=== PATIENT | male | born 1990 | race American Indian/Alaskan Native ===

== ENCOUNTER 2017-01-04 19:33 | Emergency (ER) | payer MEDICAID ==
[2017-01-04] MEDS ORDERED: PEPCID IV ONE (20:29)
[2017-01-04] MEDS ORDERED: BENADRYL IV ONE (20:29)
[2017-01-04] MEDS ORDERED: NACL 0.9% 1000 ML 1,000 ML IV ONE (20:30)
--- NOTE | 2017-01-04 20:30 | Emergency Department Report ---
HPI - General Chief Complaint: Allergic Reaction Time Seen by Provider: 01/04/17 20:25 ED Past Medical Hx - Past Medical History Previous Medical History?: No - Surgical History Past Surgical History?: No - Social History Smoking Status: Current Every Day Smoker Substance Use Type: None ED Review of Systems ROS: Stated complaint: POSS REACTION TO MEDS Other details as noted in HPI Physical Exam - Physical Exam Vital Signs: Vital Signs 01/04/17 19:53 Temperature 98.6 F Pulse Rate 118 H Respiratory 18 Rate Blood Pressure 133/88 O2 Sat by Pulse 100 Oximetry ED Course Vital Signs 01/04/17 19:53 Temperature 98.6 F Pulse Rate 118 H Respiratory 18 Rate Blood Pressure 133/88 O2 Sat by Pulse 100 Oximetry Critical care attestation.: If time is entered above; I have spent that time in minutes in the direct care of this critically ill patient, excluding procedure time. ED Disposition Condition: Stable
--- NOTE | 2017-01-04 20:35 | Emergency Department Report ---
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 Pt reports today is the first time he has ever had it. Pt reports his jaw feels "locked" but the patient has FROM of his jaw and is speaking. Pt is a poor historian secondary to mental delay. Otherwise no other complaints - Related Data Previous Rx's Medication Instructions Recorded Last Taken Type diphenhydrAMINE [Benadryl CAP] 25 mg PO Q6HR PRN #15 capsule 01/04/17 Unknown Rx predniSONE [Deltasone] 50 mg PO QDAY #5 tab 01/04/17 Unknown Rx Allergies Allergy/AdvReac Type Severity Reaction Status Date / Time No Known Allergies Allergy Verified 01/04/17 20:45 ED Review of Systems ROS: Stated complaint: POSS REACTION TO MEDS Other details as noted in HPI Comment: Unobtainable due to pts medical conditions ED Past Medical Hx - Past Medical History Previous Medical History?: No Hx Psychiatric Treatment: Yes (Pt is on seroquel and invega) - Surgical History Past Surgical History?: No - Social History Smoking Status: Current Every Day Smoker Substance Use Type: None - Medications Home Medications: Home Medications Medication Instructions Recorded Confirmed Last Taken Type diphenhydrAMINE [Benadryl CAP] 25 mg PO Q6HR PRN #15 capsule 01/04/17 Unknown Rx predniSONE [Deltasone] 50 mg PO QDAY #5 tab 01/04/17 Unknown Rx ED Physical Exam - General Limitations: No Limitations, Other (mental delay) General appearance: alert, in no apparent distress - Head Head exam: Present: atraumatic, normocephalic, normal inspection, other (Pt has FROM of his jaw, patient reports tenderness to his face) - Eye Eye exam: Present: normal appearance Pupils: Present: normal accommodation - ENT ENT exam: Present: normal exam, normal orophraynx, mucous membranes moist, TM's normal bilaterally (airway is patent, (-)tongue swelling (-)sublingual swelling (-) LAD (-) tonsillar swelling) - Neck Neck exam: Present: normal inspection, full ROM. Absent: tenderness, lymphadenopathy - Respiratory Respiratory exam: Present: normal lung sounds bilaterally. Absent: respiratory distress, wheezes, rales - Cardiovascular Cardiovascular Exam: Present: regular rate, normal rhythm. Absent: systolic murmur, diastolic murmur, rubs, gallop - GI/Abdominal GI/Abdominal exam: Present: soft, normal bowel sounds - Rectal Rectal exam: Present: deferred - Extremities Exam Extremities exam: Present: normal inspection - Back Exam Back exam: Present: normal inspection - Neurological Exam Neurological exam: Present: alert, oriented X3 - Psychiatric Psychiatric exam: Present: normal affect, normal mood - Skin Skin exam: Present: warm, dry, intact, normal color. Absent: rash ED Course Vital Signs 01/04/17 19:53 Temperature 98.6 F Pulse Rate 118 H Respiratory 18 Rate Blood Pressure 133/88 O2 Sat by Pulse 100 Oximetry ED Medical Decision Making - Medical Decision Making Pt is limited in history due to his mental delay, however patient is able to answer questions, has FROM of his jaw, does not exhibit tardive dyskinesia sx, has no oral swelling. Will still treat as allergic reaction, ordered solumedrol 125mg IVP, benadryl 25mg IVP, pepcid 20mg IVP, and 1 L NS IVF Pt re-evaluated, patient back at baseline and reports significant improvement Critical care attestation.: If time is entered above; I have spent that time in minutes in the direct care of this critically ill patient, excluding procedure time. ED Disposition Clinical Impression: Allergic reaction caused by a drug Disposition: DISCHARGED TO HOME OR SELFCARE Is pt being admited?: No Condition: Stable Prescriptions: diphenhydrAMINE [Benadryl CAP] 25 mg PO Q6HR PRN #15 capsule PRN Reason: Allergic Reaction predniSONE [Deltasone] 50 mg PO QDAY #5 tab
[2017-01-04 21:51] VITALS: BP 116/71
== END 2017-01-04 21:54 | disposition home or self-care (01) ==
LOC: ED 19:33
DX: T43.595A Adverse effect of other antipsychotics and neuroleptics, initial encounter (principal); F17.200 Nicotine dependence, unspecified, uncomplicated; Y92.89 Other specified places as the place of occurrence of the external cause
CPT/HCPCS: 96361; 96374; 96375; 99283; J1200; J2930; J7030

== ENCOUNTER 2017-10-08 13:56 | Emergency (ER) | payer MEDICAID ==
[2017-10-08] MEDS ORDERED: TESSALON PERLES PO ONE (16:43)
[2017-10-08] MEDS ORDERED: MOTRIN PO ONE (16:43)
--- NOTE | 2017-10-08 17:10 | XRay Report ---
FINAL REPORT PROCEDURE: XR CHEST ROUTINE 2V TECHNIQUE: PA and lateral chest radiographs were obtained. CPT 24908 HISTORY: cough COMPARISON: No prior studies are available for comparison. FINDINGS: Heart: Normal. Mediastinum/Vessels: Normal. Lungs/Pleural space: Normal. Bony thorax: No acute osseous abnormality. There is mild wide arching thoracic scoliosis convex the left apex at T8. There is mild deformity of upper ribs on the left. I suspect this is related to old trauma. Correlation with prior trauma history recommended. Other: IMPRESSION: No evidence of acute cardiac or pulmonary process.. Mild scoliosis. Mild deformity upper ribs on the left likely related to old trauma. Correlation with physical exam and prior trauma history recommended.
--- NOTE | 2017-10-08 17:35 | Emergency Department Report ---
- General Chief Complaint: Upper Respiratory Infection Stated Complaint: FLU LIKE SYMPTOMS Time Seen by Provider: 10/08/17 16:42 Source: patient Mode of arrival: Ambulatory Limitations: No Limitations - History of Present Illness Initial Comments: This is a 27-year-old male nontoxic, well nourished in appearance, no acute signs of distress presents to the ED with c/o of productive cough, rhinorrhea, nasal congestion, and frontal sinus pain x4 days. Patient describers productive cough as yellow/green mucus production. Patient denies any body aches. Patient denies any recent travels, long car rides, recent hospital stays. Patient denies any calf pain or calf tenderness. Denies any hemoptysis. Patient denies chest pain, shortness of breath, fever, chills, nausea, vomiting, headache, stiff neck, numbness, tingling. Patient denies any allergies or PMH. MD Complaint: cough, rhinorrhea, nasal congestion, sinus pain -: days(s) (4) Severity: mild Severity scale (0 -10): 8 Quality: aching Consistency: constant Improves With: nothing Worsens With: nothing Associated Symptoms: headache (frontal sinus region), rhinorrhea, nasal congestion, sore throat, cough. denies: fever, chills, myalgias, diaphoresis, stiff neck, chest pain, shortness of breath, abdominal pain, nausea, vomiting, diarrhea, dysuria, rash, confusion, right sweats, weight loss, epistaxis, hoarseness, ear pain Treatments Prior to Arrival: none - Related Data Previous Rx's Medication Instructions Recorded Last Taken Type diphenhydrAMINE [Benadryl CAP] 25 mg PO Q6HR PRN #15 capsule 01/04/17 Unknown Rx predniSONE [Deltasone] 50 mg PO QDAY #5 tab 01/04/17 Unknown Rx Amoxicillin/K Clav Tab [Augmentin 1 tab PO Q12HR #20 tab 10/08/17 Unknown Rx 875 mg] Benzonatate [Tessalon Perle] 100 mg PO Q8H PRN #20 capsule 10/08/17 Unknown Rx Allergies Allergy/AdvReac Type Severity Reaction Status Date / Time No Known Allergies Allergy Verified 10/08/17 14:05 ED Review of Systems ROS: Stated complaint: FLU LIKE SYMPTOMS Other details as noted in HPI Respiratory: cough ED Past Medical Hx - Past Medical History Hx Psychiatric Treatment: Yes (Pt is on seroquel and invega) - Social History Smoking Status: Current Every Day Smoker Substance Use Type: None - Medications Home Medications: Home Medications Medication Instructions Recorded Confirmed Last Taken Type diphenhydrAMINE [Benadryl CAP] 25 mg PO Q6HR PRN #15 capsule 01/04/17 Unknown Rx predniSONE [Deltasone] 50 mg PO QDAY #5 tab 01/04/17 Unknown Rx Amoxicillin/K Clav Tab [Augmentin 1 tab PO Q12HR #20 tab 10/08/17 Unknown Rx 875 mg] Benzonatate [Tessalon Perle] 100 mg PO Q8H PRN #20 capsule 10/08/17 Unknown Rx ED Physical Exam - General Limitations: No Limitations General appearance: alert, in no apparent distress - Head Head exam: Present: atraumatic, normocephalic, normal inspection - Eye Eye exam: Present: normal appearance, PERRL, EOMI. Absent: scleral icterus, conjunctival injection, nystagmus, periorbital swelling, periorbital tenderness Pupils: Present: normal accommodation - ENT ENT exam: Present: normal exam, normal orophraynx, mucous membranes moist, TM's normal bilaterally, normal external ear exam - Neck Neck exam: Present: normal inspection, full ROM. Absent: tenderness, meningismus, lymphadenopathy, thyromegaly - Respiratory Respiratory exam: Present: normal lung sounds bilaterally. Absent: respiratory distress, wheezes, rales, rhonchi, stridor, chest wall tenderness, accessory muscle use, decreased breath sounds, prolonged expiratory - Cardiovascular Cardiovascular Exam: Present: regular rate, normal rhythm, normal heart sounds. Absent: irregular rhythm, systolic murmur, diastolic murmur, rubs, gallop - GI/Abdominal GI/Abdominal exam: Present: soft, normal bowel sounds. Absent: distended, tenderness, guarding, rebound, rigid, diminished bowel sounds - Rectal Rectal exam: Present: deferred - Extremities Exam Extremities exam: Present: normal inspection, full ROM, normal capillary refill. Absent: tenderness, pedal edema, joint swelling, calf tenderness - Back Exam Back exam: Present: normal inspection, full ROM. Absent: tenderness, CVA tenderness (R), CVA tenderness (L), muscle spasm, paraspinal tenderness, vertebral tenderness, rash noted - Neurological Exam Neurological exam: Present: alert, oriented X3, CN II-XII intact, normal gait, reflexes normal - Psychiatric Psychiatric exam: Present: normal affect, normal mood - Skin Skin exam: Present: warm, dry, intact, normal color. Absent: rash - Other Other exam information: Positive sinus tenderness. ED Course Vital Signs 10/08/17 14:05 Temperature 98.4 F Pulse Rate 97 H Respiratory 16 Rate Blood Pressure 108/73 O2 Sat by Pulse 98 Oximetry - Reevaluation(s) Reevaluation #1: 10/08/17 17:34 Patient is speaking in full sentences with no signs of distress noted. ED Medical Decision Making - Medical Decision Making This is a 26-year-old male that presents with upper respiratory infection and Sinusitis. Patient is stable and was examined by me. Chest xray has not been obtained due to patient being . Influenza swab negative. Vital signs stable prior to discharge. Patient is afebrile. Normal heart rate. I'll treat patient with augmentin at discharge due to patient stating symptoms are worsening. Patient was rehydrated in the ER and patient tolerated well with no signs of nasuea or vomiting. Patient was instructed to rest and increase hydration and take Tylenol for fever as directed. Patient was instructed Follow- up with a primary care doctor in 3-5 days or if symptoms worsen and continue return to emergency room as soon as possible. At time time of discharge, the patient does not seem toxic or ill in appearance. No acute signs of distress noted. Patient agrees to discharge treatment plan of care. No further questions noted by the patient. Critical care attestation.: If time is entered above; I have spent that time in minutes in the direct care of this critically ill patient, excluding procedure time. ED Disposition Clinical Impression: Upper respiratory infection Qualifiers: URI type: unspecified URI Qualified Code(s): J06.9 - Acute upper respiratory infection, unspecified Sinusitis Qualifiers: Sinusitis location: frontal Chronicity: acute Recurrence: non-recurrent Qualified Code(s): J01.10 - Acute frontal sinusitis, unspecified Disposition: - TO HOME OR SELFCARE Is pt being admited?: No Does the pt Need Aspirin: No Condition: Stable Instructions: Benzonatate (By mouth), Amoxicillin/Clavulanate Potassium (By mouth), Sinusitis (ED), Upper Respiratory Infection (ED) Additional Instructions: Follow-up with a primary care doctor in 3-5 days or if symptoms worsen and continue return to emergency room as soon as possible. Prescriptions: Amoxicillin/K Clav Tab [Augmentin 875 mg] 1 tab PO Q12HR #20 tab Benzonatate [Tessalon Perle] 100 mg PO Q8H PRN #20 capsule PRN Reason: Cough Referrals: PRIMARY CARE, [Referring] - 3-5 Days GERALD MCWILLIAMS MD [Staff Physician] - 3-[address] [facility] [Outside] - 3-5 Days [facility] [Outside] - 3-5 Days Forms: Work/School Release Form(ED)
[2017-10-08 18:34] VITALS: BP 118/71
== END 2017-10-08 18:36 | disposition home or self-care (01) ==
LOC: ED 13:56
DX: J01.10 Acute frontal sinusitis, unspecified (principal); J06.9 Acute upper respiratory infection, unspecified; F17.200 Nicotine dependence, unspecified, uncomplicated
CPT/HCPCS: 71046; 87400